=== PATIENT | female | born 1960 | race Caucasian/White ===

== ENCOUNTER → 2023-04-09 15:17 | Outpatient (REF) | payer OTHER, SELFPAY | LOC: HWWDC 15:17 | PROVIDERS: ATTENDING PHYSICIAN Nurse Practitioner Family; FAMILY PHYSICIAN Internal Medicine; REFERRING PHYSICIAN Physician Assistant Medical | DX: Z12.31 Encounter for screening mammogram for malignant neoplasm of breast (principal); M54.9 Dorsalgia, unspecified; Z13.820 Encounter for screening for osteoporosis | CPT/HCPCS: 77063; 77067; 77080 ==

== ENCOUNTER → 2024-04-13 17:45 | Outpatient (REF) | payer MEDICARE, SELFPAY | LOC: RAD 17:45 | PROVIDERS: ATTENDING PHYSICIAN Internal Medicine | DX: J45.21 Mild intermittent asthma with (acute) exacerbation (principal); R06.2 Wheezing | CPT/HCPCS: 71046 ==